=== PATIENT | female | born 1995 | race Caucasian/White ===

== ENCOUNTER → 2024-12-12 13:25 | Outpatient (BNVA) | payer MEDICAID, SELFPAY | PROVIDERS: Visit Provider Nurse Practitioner Women's Health | DX: N91.2 Amenorrhea, unspecified (principal) | CPT/HCPCS: 81025; 84702 ==

== ENCOUNTER → 2024-12-19 08:28 | Outpatient (BNVA) | payer MEDICAID, SELFPAY | PROVIDERS: Visit Provider Nurse Practitioner Women's Health | DX: Z36.87 Encounter for antenatal screening for uncertain dates (principal) | CPT/HCPCS: 76801 ==

== ENCOUNTER → 2024-12-27 10:14 | Outpatient (BNVA) | payer MEDICAID, SELFPAY | PROVIDERS: Visit Provider Nurse Practitioner Women's Health | DX: Z34.90 Encounter for supervision of normal pregnancy, unspecified, unspecified trimester (principal) | CPT/HCPCS: 80307; 82950; 84315; 85025; 86592; 86762; 86803; 86850; 86900; 87086; 87340; 87806 ==

== ENCOUNTER → 2025-01-11 12:58 | Outpatient (BNVA) | payer MEDICAID, SELFPAY | PROVIDERS: Visit Provider Nurse Practitioner Women's Health | DX: O09.892 Supervision of other high risk pregnancies, second trimester (principal) | CPT/HCPCS: 84315; 87491; 87591; 87661; 88175 ==

== ENCOUNTER → 2025-04-03 09:08 | Outpatient (BNVA) | payer MEDICAID, SELFPAY | PROVIDERS: Visit Provider Obstetrics & Gynecology | DX: O09.899 Supervision of other high risk pregnancies, unspecified trimester (principal); Z3A.25 25 weeks gestation of pregnancy | CPT/HCPCS: 84315 ==

== ENCOUNTER → 2025-04-17 08:52 | Outpatient (BNVA) | payer MEDICAID, SELFPAY | PROVIDERS: Visit Provider Obstetrics & Gynecology | DX: O09.892 Supervision of other high risk pregnancies, second trimester (principal) | CPT/HCPCS: 84315 ==

== ENCOUNTER → 2025-04-24 08:45 | Outpatient (BNVA) | payer MEDICAID, SELFPAY | PROVIDERS: Visit Provider Obstetrics & Gynecology | DX: O26.893 Other specified pregnancy related conditions, third trimester (principal); Z3A.28 28 weeks gestation of pregnancy; Z67.91 Unspecified blood type, Rh negative | CPT/HCPCS: 85025; 86850 ==

== ENCOUNTER → 2025-05-03 08:02 | Outpatient (BNVA) | payer MEDICAID, SELFPAY | PROVIDERS: Visit Provider Obstetrics & Gynecology | DX: Z34.93 Encounter for supervision of normal pregnancy, unspecified, third trimester (principal); Z3A.30 30 weeks gestation of pregnancy | CPT/HCPCS: 81000 ==

== ENCOUNTER → 2025-05-17 10:09 | Outpatient (BNVA) | payer MEDICAID, SELFPAY | PROVIDERS: Visit Provider Nurse Practitioner Women's Health | DX: O09.893 Supervision of other high risk pregnancies, third trimester (principal); Z3A.32 32 weeks gestation of pregnancy; Z67.31 Type AB blood, Rh negative | CPT/HCPCS: 82950; 84315 ==

== ENCOUNTER → 2025-05-30 09:17 | Outpatient (BNVA) | payer MEDICAID, SELFPAY | PROVIDERS: Visit Provider Nurse Practitioner Women's Health | DX: Z34.93 Encounter for supervision of normal pregnancy, unspecified, third trimester (principal); Z3A.34 34 weeks gestation of pregnancy | CPT/HCPCS: 84315 ==

== ENCOUNTER → 2025-06-14 10:35 | Outpatient (BNVA) | payer MEDICAID, SELFPAY | PROVIDERS: Visit Provider Obstetrics & Gynecology | DX: O09.299 Supervision of pregnancy with other poor reproductive or obstetric history, unspecified trimester (principal); O26.893 Other specified pregnancy related conditions, third trimester; Z3A.36 36 weeks gestation of pregnancy; O99.213 Obesity complicating pregnancy, third trimester; E66.01 Morbid (severe) obesity due to excess calories; Z68.41 Body mass index [BMI] 40.0-44.9, adult; Z98.890 Other specified postprocedural states; Z67.31 Type AB blood, Rh negative | CPT/HCPCS: 84315; 87081 ==

== ENCOUNTER 2025-06-20 08:51 | Outpatient (CLI) | payer MEDICAID, SELFPAY ==
[2025-06-20 09:41] LABS: Alanine Aminotransferase 41 U/L (0-33); Albumin Level 3.4 g/dL (3.5-5.2); Alkaline Phosphatase 154 U/L (35-105); Anion Gap 17.8 (5-19); Aspartate Amino Transferase 23 U/L (0-32); Blood Urea Nitrogen 6 mg/dL (6-20); Calcium 8.9 mg/dL (8.5-10.5); Carbon Dioxide 21 mmol/L (22-29); Chloride 102 mmol/L (98-107); Globulin 2.8 g/dL (1.3-4.6); Glucose 151 mg/dL (65-115); Osmolality Calculated 285 mOsm/kg (285-295); Potassium 3.8 mmol/L (3.5-5.1); Sodium 137 mmol/L (136-145); Total Protein 6.2 g/dL (6.6-8.7)
== END 2025-06-20 08:52 | disposition home or self-care (01) ==
LOC: LAB 08:53
PROVIDERS: Visit Provider Obstetrics & Gynecology
DX: O26.613 Liver and biliary tract disorders in pregnancy, third trimester (principal); K80.20 Calculus of gallbladder without cholecystitis without obstruction
CPT/HCPCS: 80053; 82542

== ENCOUNTER → 2025-06-21 09:37 | Outpatient (BNVA) | payer MEDICAID, SELFPAY | PROVIDERS: Visit Provider Obstetrics & Gynecology | DX: O26.893 Other specified pregnancy related conditions, third trimester (principal); Z3A.37 37 weeks gestation of pregnancy; Z67.31 Type AB blood, Rh negative | CPT/HCPCS: 84315 ==

== ENCOUNTER → 2025-06-28 09:48 | Outpatient (BNVA) | payer MEDICAID, SELFPAY | PROVIDERS: Visit Provider Obstetrics & Gynecology | DX: Z34.93 Encounter for supervision of normal pregnancy, unspecified, third trimester (principal) | CPT/HCPCS: 84315 ==

== ENCOUNTER 2025-07-02 00:46 | Inpatient (IN) | payer MEDICAID, SELFPAY ==
[2025-07-01] VITALS (7 sets, daily range): BP systolic 129–141; BP diastolic 74–88; PULSE 94–122; BMI 48.8
--- NOTE | 2025-07-01 20:11 | PM.OBGYHP ---
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 Believes this is big baby and lives an hour away. Contractions x 3 hours. Breathing through them. Review of Systems Narrative: OB: movement: [+ Const: Denies: fever(s) or chills Card: Denies: chest pain, palpitations or syncope Resp: Denies: dyspnea GI: Denies: abdominal pain, nausea or vomiting : Denies: flank pain, dysuria or urinary frequency Musc: Denies: back pain or extremity swelling Skin/Breast: Denies: rash, pruritus or breast pain Neuro: Denies: headache(s) or dizziness Psych: Denies: anxiety, depression or mood swings Endo: Denies: polyuria, tired all the time, cold intolerance or heat intolerance Robin/Lymph: Denies: easy bruising or easy bleeding All/Imm: Denies: urticaria Medications/Allergies Home Medications ?Medication ?Instructions ?Recorded ?Confirmed ?Last Taken ?Type quetiapine 50 mg tablet,extended 50 mg PO DAILY 12/12/24 06/28/25 Unknown History release 24 hr (Seroquel XR) --Folic Acid and Iron PO DAILY 01/11/25 06/28/25 Unknown History Allergies Allergy/AdvReac Type Severity Reaction Status Date / Time codeine Allergy Mild HIVES Verified 06/28/25 07:38 [facility] 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 Bipolar disorder No pertinent past medical history neghx: htn, thyroid, dm, dvt/pe PCP: [facility]- Anthony Morales Anxiety Surgical History Hx of tonsillectomy History of cervical cerclage 2017--followed/managed [place] 2019-- followed/managed- removed at [facility]; reports having a residual suture Family History Grandmother Colon cancer Diabetes Sister Diabetes Hypertension Father Diabetes Hypertension Denies family history of Ovarian cancer Heart disease Hyperlipidemia Breast cancer Uterine cancer Thyroid disease Stroke Social History Smoking and tobacco/nicotine status: former use of tobacco/nicotine History History History 6 Term 2 1 Miscarriages/Ectopic 2 Living Children 2 Past Pregnancies Del. Date GA/Weeks Outcome Route Wt Inf Gender Labor Lgth Comp. Anesthesia Location 03/16/12 20 live - full term Vaginal 9 oz Male [facility] 06/25/20 38 live - full term Vaginal 8 lb 5 oz Female [facility] 11/13/21 11 spontaneous 12/20/21 8 spontaneous 01/18/25 38 live - full term Vaginal 6 lb 15 oz Male [facility] Delivery Date: 03/16/12 Last Updated by: Renée Torres LPN incompetent cervix Delivery Date: 06/25/20 Last Updated by: Renée Torres LPN Incompetent cervix with cerclage Delivery Date: 01/18/25 Last Updated by: Renée Torres LPN Incompetent cervix with cerclage Care KATHI Calculator Estimated Delivery Date Method Current WG Current Estimate 07/11/25 Ultrasound #1 38w 4d Specific Issues/Plans HX CERVICAL CERCLAGE X 2-- refer to [facility] appt 01/24/25 BIPOLAR D.O. OBESITY; early GCT at 12 wks passed AB NEGATIVE BLOOD TYPE; will need rhogam as baby is positive--given 04/24/2025 Vitals/I&O/Wt Last Vital Signs Pulse 120 H 07/01/25 19:46 BP 129/79 07/01/25 19:46 Physical Exam Narrative: Appearance: grossly normal Attitude: calm and engaged, appropriate eye contact Const: no acute distress, oriented x3 cooperative Chest: Symmetrical chest wall rise Resp: normal respiratory effort, clear to auscultation bilaterally Cardio: regular rate and regular rhythm GI: Soft to palpation, gravid, Non Tender, no Guarding : No Uterine tenderness, cervix normal appearing, vagina no masses, urethra normal Extremity: normal inspection, negative for no pedal edema Neuro: oriented x3 and moves all extremities, speech normal Psych: mental status grossly normal, and Normal thought process present Skin: no rashes or lesions noted Results Labs OB ([facility]): Blood Type AB Negative 12/27/24 Antibody Screen Negative 04/24/25 Hct, (36-47) 35.8 % L 04/24/25 Hgb, (11.27-16.99) 11.90 g/dL 04/24/25 Rho(D) Type Rh negative 12/27/24 Plt Count, (157-399) 195 10^3/cmm 04/24/25 Hep Bs Antigen, (Nonreactive) Non-reactive 12/27/24 Hepatitis C Antibody, (Nonreactive) Non-reactive 12/27/24 Rubella IgG Antibody, (0.0-10.0) 63.9 IU/mL H 12/27/24 RPR, (Nonreactive) Nonreactive 12/27/24 HIV 1&2 Ab & HIV 1 Ag, (Non-Reactiv) Non-reactive 12/27/24 Glucose 1 Hr 50 gm, (85-140) 101 mg/dL 05/17/25 Ser , Semi-Qnt 97573.00 mIU/mL 12/12/24 HCG, Qual, (Negative) Positive H 12/12/24 Urine Opiates Screen, (Negative) Negative ng/mL 12/27/24 Ur Barbiturates Screen, (Negative) Negative ng/mL 12/27/24 Ur Phencyclidine Scrn, (Negative) Negative ng/mL 12/27/24 Ur Amphetamines Screen, (Negative) Negative ng/mL 12/27/24 U Benzodiazepines Scrn, (Negative) Negative ng/mL 12/27/24 Urine Cocaine Screen, (Negative) Negative ng/mL 12/27/24 U Marijuana (THC) Screen, (Negative) Negative ng/mL 12/27/24 Micro Urine Specimen 12/27/24 Pap Smear Interpret See note 01/11/25 A&P Assessment and plan 1. Uterine contractions: Admitted for labor management. GBS neg. Epidural PRN. 2. Third trimester : 3. Rh negative status during in third trimester: 4. Severe obesity due to excess calories affecting in third trimester: PDMP PDMP Reviewed: Not Reviewed Attestations Medical Necessity Statement*: NA Coding Level of Care Code Acute Code for Chg Fwd Diagnoses Uterine contractions O47.9 Third trimester Z34.93 Rh negative status during in third trimester O26.893; Z67.91 Trimester: third trimester Severe obesity due to excess calories affecting in third trimester O99.213; E66.01 Trimester: third trimester Obesity type affecting : severe obesity due to excess calories
[2025-07-01 22:20] LABS: Hematocrit 31.6 % (36-47); Hemoglobin 10.60 g/dL (11.27-16.99); Mean Corpuscular HGB Conc 33.5 g/dL (30-55); Mean Corpuscular Hemoglobin 31.5 pg (27-33); Mean Corpuscular Volume 93.8 fl (85-98); Nucleated Red Blood Cells % 0 %; Platelet Count 173 10^3/cmm (157-399); Red Blood Count 3.37 10^6/uL (3.85-5.65); White Blood Count 10.70 10^3/uL (3.29-11.43)
[2025-07-02] VITALS (145 sets, daily range): BP systolic 91–165; BP diastolic 47–95; PULSE 70–135; RESP 15–17; TEMP 36.7–37.1; O2SAT 95–100
--- NOTE | 2025-07-02 01:22 | ANES.PREANE2 ---
Pre-Anesthetic Assessment Height/Weight: Height 5 ft 4 in Weight 284 lb 8 oz Pulse BP Pulse Ox 115 H 144/89 98 07/02/25 01:20 07/02/25 01:16 07/02/25 01:20 Preop Diagnosis: IUP Was Beta Ema taken within 24 hours: N/A Was Clonidine taken within 24 hours: N/A Social No alcohol and No tobacco Exam alert, oriented x 3, clear to auscultation bilaterally and regular rate & rhythm Airway Submandibular: within normal limits Cervical ROM: within normal limits Mallampati: Class III Dentition: full Anesthetic Plan ASA status: 3 Anesthesia: Regional (specify below) Other: here for active labor No issues during Denies any cardiac or pulmonary issues Only takes quetiapine BMI 48.8 Labs reviewed acceptable for procedure Plan for routine epidural placement Medications/Allergies Home Medications ?Medication ?Instructions ?Recorded ?Confirmed ?Last Taken ?Type quetiapine 50 mg tablet,extended 50 mg PO DAILY 12/12/24 07/01/25 06/30/25 History release 24 hr (Seroquel XR) --Folic Acid and Iron PO DAILY 01/11/25 06/28/25 Unknown History Allergies Allergy/AdvReac Type Severity Reaction Status Date / Time codeine Allergy Mild HIVES Verified 07/01/25 22:53 [facility] Anesthesia Medical History (Updated 07/01/25 @ 20:15 by Hawa Duff MD) Irregular menses just since her nexplanon removal Jul 2024? Bipolar disorder No pertinent past medical history neghx: htn, thyroid, dm, dvt/pe PCP: [facility]- Anthony Morales Anxiety Surgical History Hx of tonsillectomy History of cervical cerclage 2017--followed/managed [place] 2019-- followed/managed- removed at [facility]; reports having a residual suture Family History Grandmother Colon cancer Diabetes Sister Diabetes Hypertension Father Diabetes Hypertension Denies family history of Ovarian cancer Heart disease Hyperlipidemia Breast cancer Uterine cancer Thyroid disease Stroke Social History Smoking and tobacco/nicotine status: former use of tobacco/nicotine Data Anesthesia 07/01/25 19:40 Short CBC 07/01/25 Range/Units 19:40 WBC 10.70 (3.29-11.43) 10^3/uL Hgb 10.60 L (11.27-16.99) g/dL Hct 31.6 L (36-47) % MCV 93.8 (85-98) fl Plt Count 173 (157-399) 10^3/cmm Neut % (Auto) 70.8 % Neut # (Auto) 7.57 (1.8-7.7) 10^3/uL Blood Bank 07/01/25 19:40 Blood Type AB Negative Rho(D) Type Rh negative Antibody Screen Negative
[2025-07-02] MEDS: ROPivacaine premix 200 MG/100 ML PREMIX 13 MG EPIDURAL ×3 (01:23→13:27)
--- NOTE | 2025-07-02 01:24 | ANES.PROC ---
Anesthesia Procedures Procedure/Date: 07/02/25 Epidural: Time Out Performed: Yes Consents Signed: Procedure Consent Consent: requested by attending/covering physician and from patient Lumbar Level: L3-L4 Epidural position: sitting Additional Comments: Site was sterilely prepped with ChloraPrep. 1% lidocaine was used to numb skin. An 18-gauge epidural needle was then introduced until loss of resistance was achieved at 7 cm to the skin. Epidural catheter was then threaded and left at 15 cm to the skin. Test dose was performed without results. Sterile dressing was applied. 0.2% ropivacaine was set at 13 mL/h. Patient tolerated procedure well
[2025-07-02] MEDS: oxytocin 30 UNIT/500 ML BAG IV (08:50)
--- NOTE | 2025-07-02 08:56 | PM.MISC ---
Miscellaneous Note Note: cvx 6-7/60/-1, AROM clear, vertex. Epidural working, one side a little stronger than other. Anticipate .
[2025-07-02] MEDS: ondansetron 2 mg/ML SDV 2 mL 4 MG IVP (12:07)
--- NOTE | 2025-07-02 14:21 | PM.DELIVERY ---
Delivery Note: Date of delivery: July 02, 2025 Pre-delivery diagnoses: IUP@ 38+ 5 wks, labor Post-delivery diagnoses: same Procedure: Delivering Physician: Hawa Duff MD Estimated blood loss (mL): 200 Delivery: Patient pushed and delivered by a vertex OA viable male over intact perineum. Nuchal cord x 1 tight reduced. Terminal meconium seen. Cord clamped after > 60 seconds delay and placed on maternal abdomen. Placenta delivered spontaneously and intact. Second degree tear repaired with 2-0 chromic. Baby and Mom in recovery. TXA given along with pitocin. Hemostasis seen. History History History 6 Term 2 1 Miscarriages/Ectopic 2 Living Children 2 Past Pregnancies Del. Date GA/Weeks Outcome Route Wt Inf Gender Labor Lgth Comp. Anesthesia Location 03/16/12 20 live - full term Vaginal 9 oz Male [facility] 06/25/20 38 live - full term Vaginal 8 lb 5 oz Female [facility] 11/13/21 11 spontaneous 12/20/21 8 spontaneous 01/18/25 38 live - full term Vaginal 6 lb 15 oz Male [facility] Delivery Date: 03/16/12 Last Updated by: Renée Torres LPN incompetent cervix Delivery Date: 06/25/20 Last Updated by: Renée Torres LPN Incompetent cervix with cerclage Delivery Date: 01/18/25 Last Updated by: Renée Torres LPN Incompetent cervix with cerclage A&P PDMP PDMP Reviewed: Not Reviewed Coding Level of Care Code Acute Code for Chg Fwd
[2025-07-02] MEDS: tranexamic acid 1,000 MG/100 ML PREMIX 600 MG IV (14:25)
[2025-07-02] MEDS: benzocaine-menthol 78 gm Canister 1 SPRAY TOPICAL (16:23)
[2025-07-02] MEDS: quetiapine XR (24HR) 50 mg Tablet PO (20:37)
[2025-07-03 05:21] VITALS: BP 117/70; PULSE 95; RESP 16
[2025-07-03 05:39] LABS: Hematocrit 26.3 % (36-47); Hemoglobin 8.70 g/dL (11.27-16.99); Mean Corpuscular HGB Conc 33.1 g/dL (30-55); Mean Corpuscular Hemoglobin 31.8 pg (27-33); Mean Corpuscular Volume 96.0 fl (85-98); Platelet Count 131 10^3/cmm (157-399); Red Blood Count 2.74 10^6/uL (3.85-5.65); White Blood Count 11.96 10^3/uL (3.29-11.43)
--- NOTE | 2025-07-03 08:15 | PM.OBGYDC ---
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 Uterine contractions: 2. Third trimester : 3. Rh negative status during in third trimester: 4. Severe obesity due to excess calories affecting in third trimester: Reason for Visit Reason for Visit: contractions Hospital Course Hospital Course Admitted for labor. She delivered by and progressed in all phases to discharge after routine stay. See chart for details. Information Peripartum Data: Delivery Method: Vaginal Physical Exam Narrative: Appearance: grossly normal Attitude: calm and engaged, appropriate eye contact Const: no acute distress, oriented x3 cooperative Chest: Symmetrical chest wall rise Resp: normal respiratory effort, clear to auscultation bilaterally Cardio: regular rate and regular rhythm GI: Soft to palpation, Non Tender, no Guarding : fundus firm Extremity: normal inspection, no pedal edema Neuro: oriented x3 and moves all extremities, speech normal Psych: mental status grossly normal, and Normal thought process present Skin: no rashes or lesions noted Urinary Catheter Management: Vargas Latex: Cath Placed During This Visit: yes, but has since been removed by the nurse Reason for Continuing Indwelling Catheter: Decision to DC Catheter Urinary Catheter Date of Insertion: 07/02/25 Urinary Catheter Time of Insertion: 01:40 Date Urinary Catheter Removed: 07/02/25 Time Urinary Catheter Discontinued: 13:50 History History History 6 Term 2 1 Miscarriages/Ectopic 2 Living Children 2 Past Pregnancies Del. Date GA/Weeks Outcome Route Wt Inf Gender Labor Lgth Comp. Anesthesia Location 03/16/12 20 live - full term Vaginal 9 oz Male [facility] 06/25/20 38 live - full term Vaginal 8 lb 5 oz Female [facility] 11/13/21 11 spontaneous 12/20/21 8 spontaneous 01/18/25 38 live - full term Vaginal 6 lb 15 oz Male [facility] Delivery Date: 03/16/12 Last Updated by: Renée Torres LPN incompetent cervix Delivery Date: 06/25/20 Last Updated by: Renée Torres LPN Incompetent cervix with cerclage Delivery Date: 01/18/25 Last Updated by: Renée Torres LPN Incompetent cervix with cerclage Discharge Data Studies Completed and Pending Pending at discharge Category Date Time Status Complete Crossmatch Routine Lab 07/01/25 19:40 Results Rho D Immune Globulin Routine Lab 07/01/25 19:40 Results Type and Screen Routine Lab 07/01/25 19:40 Results Laboratory Results WBC 11.96 10^3/uL (3.29-11.43) H 07/03/25 05:11 RBC 2.74 10^6/uL (3.85-5.65) L 07/03/25 05:11 Hgb 8.70 g/dL (11.27-16.99) L 07/03/25 05:11 Hct 26.3 % (36-47) L 07/03/25 05:11 MCV 96.0 fl (85-98) 07/03/25 05:11 MCH 31.8 pg (27-33) 07/03/25 05:11 MCHC 33.1 g/dL (30-55) 07/03/25 05:11 RDW 12.9 % (12.1-15.1) 07/03/25 05:11 Plt Count 131 10^3/cmm (157-399) L 07/03/25 05:11 MPV 13.3 fL (7.4-10.4) H 07/03/25 05:11 Neut % (Auto) 70.8 % 07/01/25 19:40 Lymph % (Auto) 18.1 % 07/01/25 19:40 Darke % (Auto) 9.1 % 07/01/25 19:40 Eos % (Auto) 0.8 % 07/01/25 19:40 Baso % (Auto) 0.3 % 07/01/25 19:40 Neut # (Auto) 7.57 10^3/uL (1.8-7.7) 07/01/25 19:40 Lymph # (Auto) 1.9 10^3/uL (0.8-4.8) 07/01/25 19:40 Darke # (Auto) 1.0 10^3/uL (0.2-0.9) H 07/01/25 19:40 Eos # (Auto) 0.1 10^3/uL (0.0-0.8) 07/01/25 19:40 Baso # (Auto) 0.0 10^3/uL (0.0-0.1) 07/01/25 19:40 Nucleated RBC % (auto) 0 % 07/01/25 19:40 Nucleated RBCs # 0.0 /100WBC 07/01/25 19:40 Blood Type AB Negative 07/01/25 19:40 Rho(D) Type Rh negative 07/01/25 19:40 Antibody Screen Negative 07/01/25 19:40 Screen Negative (Negative) 07/03/25 05:11 Vitals Last Vital Signs Temp 98.8 F 07/02/25 17:08 Pulse 95 07/03/25 05:21 Resp 16 07/03/25 05:21 BP 117/70 07/03/25 05:21 Pulse Ox 97 07/02/25 17:08 O2 Del Method Room Air 07/02/25 18:13 Results Labs OB ([facility]): Blood Type AB Negative 07/01/25 Antibody Screen Negative 07/01/25 Hct, (36-47) 26.3 % L Today Hgb, (11.27-16.99) 8.70 g/dL L Today Rho(D) Type Rh negative 07/01/25 Plt Count, (157-399) 131 10^3/cmm L Today Hep Bs Antigen, (Nonreactive) Non-reactive 12/27/24 Hepatitis C Antibody, (Nonreactive) Non-reactive 12/27/24 Rubella IgG Antibody, (0.0-10.0) 63.9 IU/mL H 12/27/24 RPR, (Nonreactive) Nonreactive 12/27/24 HIV 1&2 Ab & HIV 1 Ag, (Non-Reactiv) Non-reactive 12/27/24 Glucose 1 Hr 50 gm, (85-140) 101 mg/dL 05/17/25 Ser , Semi-Qnt 13847.00 mIU/mL 12/12/24 HCG, Qual, (Negative) Positive H 12/12/24 Urine Opiates Screen, (Negative) Negative ng/mL 12/27/24 Ur Barbiturates Screen, (Negative) Negative ng/mL 12/27/24 Ur Phencyclidine Scrn, (Negative) Negative ng/mL 12/27/24 Ur Amphetamines Screen, (Negative) Negative ng/mL 06/17/25 U Benzodiazepines Scrn, (Negative) Negative ng/mL 12/27/24 Urine Cocaine Screen, (Negative) Negative ng/mL 12/27/24 U Marijuana (THC) Screen, (Negative) Negative ng/mL 12/27/24 Micro Urine Specimen 12/27/24 Pap Smear Interpret See note 01/11/25 Discharge Plan Discharge Patient Disposition: Home Condition: Stable Prescriptions: No Action quetiapine [Seroquel XR] 50 mg tablet extended release 24 hr 50 mg PO DAILY --Folic Acid and Iron PO DAILY 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: Obstetrics/Gynecology Discharge Order = DC NOW: Discharge Order (Routine); Ordered 07/03/25 Ordered By: Hawa Duff Referrals: Hawa Duff MD [Physician, ION IMPLANT MACHINE OPERATOR] - 6 Weeks Referral Note: Discharge Diet: Regular Discharge Activity: Increase activity as tolerated Patient Instructions: Opioid Safety, Patient Portal & Deion Instructions Discharge Attestations ION IMPLANT MACHINE OPERATOR Time Spent in Discharge Care*: less than 30 min Coding Level of Care Code Acute Code for Chg Fwd Diagnoses Uterine contractions O47.9 Third trimester Z34.93 Rh negative status during in third trimester O26.893; Z67.91 Trimester: third trimester Severe obesity due to excess calories affecting in third trimester O99.213; E66.01 Trimester: third trimester Obesity type affecting : severe obesity due to excess calories
[2025-07-03 09:45] VITALS: BP 153/89; PULSE 90; RESP 16; TEMP 36.6; O2SAT 99
[2025-07-03 10:10] VITALS: BP 153/89; RESP 16; TEMP 36.6; O2SAT 99
--- NOTE | 2025-07-03 13:59 | ANE.PACU2 ---
Inpatient post-anesthesia follow up: Airway intact: Yes Vital signs: Temperature 97.9 F Pulse Rate 90 Respiratory Rate 16 Blood Pressure 153/89 Pulse Oximetry 99 Oxygen Delivery Me thod Room Air Oxygen Flow Rate Fraction of Inspir ed Oxygen Hydration adequate: Yes Nausea and vomiting: No Pain level: 1 Mental status: Baseline Epidural Start/End: Epidural Start Date: 07/02/25 Epidural Start Time: 01:24 Epidural End Date: 07/03/25 Epidural End Time: 14:21
[2025-07-03 14:58] VITALS: BP 151/77; PULSE 77; RESP 16; TEMP 36.8; O2SAT 98
== END 2025-07-03 15:05 | disposition home or self-care (01) | DRG 560 ==
LOC: OPOB 00:48 → OBGYN 00:48
PROVIDERS: Admitting Provider Obstetrics & Gynecology; Visit Provider Obstetrics & Gynecology
DX: O99.344 Other mental disorders complicating childbirth (principal); F31.9 Bipolar disorder, unspecified; F41.9 Anxiety disorder, unspecified; O99.214 Obesity complicating childbirth; O69.81X0 Labor and delivery complicated by cord around neck, without compression, not applicable or unspecified; O77.0 Labor and delivery complicated by meconium in amniotic fluid; O70.1 Second degree perineal laceration during delivery; E66.01 Morbid (severe) obesity due to excess calories; Z3A.38 38 weeks gestation of pregnancy; Z37.0 Single live birth
CPT/HCPCS: 36415; 36430; 51702; 59025; 59409; 85025; 85027; 85460; 86850; 86900; 90384; 99211; J2405; J2590; J2795; J7030; J7121; J9999